=== PATIENT | female | born 1985 | race Caucasian/White ===

== ENCOUNTER 2019-07-07 03:58 | Emergency (ER) | payer BC, MEDICAID ==
[2019-07-07] MEDS ORDERED: IBUPROFEN 600 MG TABLET PO ONE (08:37)
[2019-07-07 09:15] LABS: ABSOLUTE BASOPHILS # (AUTO) 0.1 10^3/uL (0.0-0.2); ABSOLUTE EOSINOPHILS # (AUTO) 0.5 10^3/uL (0.0-0.6); ABSOLUTE LYMPHOCYTES (AUTO) 2.1 10^3/uL (0.5-4.7); ABSOLUTE MONOCYTES (AUTO) 0.8 10^3/uL (0.1-1.4); ABSOLUTE NEUT (AUTO) 5.8 10^3/uL (1.7-8.2); BASOPHILS % (AUTO) 1.2 % (0-2); EOSINOPHILS % (AUTO) 5.5 % (0-6); HEMATOCRIT 39.5 % (36.0-47.0); HEMOGLOBIN 13.1 g/dL (12.0-15.5); LYMPHOCYTES % (AUTO) 22.6 % (13-45); MEAN CORPUSCULAR HEMOGLOBIN 27.8 pg (27.0-33.4); MEAN CORPUSCULAR HGB CONC 33.2 g/dL (32.0-36.0); MEAN CORPUSCULAR VOLUME 84 fl (80-97); PLATELET COUNT 321 10^3/uL (150-450); RED BLOOD COUNT 4.73 10^6/uL (3.72-5.28); RED CELL DISTRIBUTION WIDTH 15.9 % (11.5-14.0); SEGMENTED NEUTROPHILS % (AUTO) 61.7 % (42-78); TOTAL CELLS COUNTED % (AUTO) 100 %; WHITE BLOOD COUNT 9.3 10^3/uL (4.0-10.5)
[2019-07-07 09:36] LABS: ALBUMIN 4.2 g/dL (3.5-5.0); ALKALINE PHOSPHATASE 62 U/L (38-126); ANION GAP 10 (5-19); ASPARTATE AMINO TRANSFERASE 33 U/L (14-36); BILIRUBIN,DIRECT 0.1 mg/dL (0.0-0.4); BILIRUBIN,TOTAL 0.5 mg/dL (0.2-1.3); BLOOD UREA NITROGEN 14 mg/dL (7-20); CALCIUM 9.5 mg/dL (8.4-10.2); CARBON DIOXIDE 29 mmol/L (22-30); CHLORIDE 102 mmol/L (98-107); GLUCOSE 104 mg/dL (75-110); POTASSIUM 4.1 mmol/L (3.6-5.0)
--- NOTE | 2019-07-07 10:01 | ER Document Report ---
ED General - General Chief Complaint: Swelling of Lower Extremity Stated Complaint: SWOLLEN FEET AND LEGS Time Seen by Provider: 07/07/19 08:07 Primary Care Provider: MOJGAN BELTRAN MD [Primary Care Provider] - Follow up as needed TRAVEL OUTSIDE OF THE [place] IN LAST 30 DAYS: No - HPI Notes: 33-year-old female to the emergency department with complaints of bilateral lower leg swelling for over a week. She states that her feet are the most swollen and they hurt. 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 She denies any chest pain, shortness of breath, recent immobilization, recent surgery, oral contraceptive use, recent long distance travel, history of DVT, or family history of coagulopathies. Patient denies any falls or blunt trauma to the legs. She denies any fevers, chills. She has not tried anything for her legs. She also admits that she wears flip-flops when she is working. - Related Data Allergies/Adverse Reactions: Penicillins Allergy (Severe, Verified 08/10/15 18:07) Hives Past Medical History - General Information source: Patient, Friend - Social History Smoking Status: Never Smoker Chew tobacco use (# tins/day): No Frequency of alcohol use: None Drug Abuse: None Family History: Reviewed & Not Pertinent Patient has suicidal ideation: No Patient has homicidal ideation: No Renal/ Medical History: Denies: Hx Peritoneal Dialysis - Immunizations Immunizations up to date: Yes Hx Diphtheria, Pertussis, Tetanus Vaccination: Yes Review of Systems - Review of Systems Constitutional: denies: Chills, Diaphoresis, Fever EENT: No symptoms reported Cardiovascular: See HPI, Edema. denies: Chest pain, Palpitations, Dyspnea, Syncope, Dizziness, Lightheaded Respiratory: denies: Cough, Short of breath Genitourinary: No symptoms reported Musculoskeletal: See HPI, Leg swelling, Ankle swelling Skin: No symptoms reported Hematologic/Lymphatic: No symptoms reported Neurological/Psychological: No symptoms reported -: Yes All other systems reviewed and negative Physical Exam - Vital signs Vitals: Temp Pulse Resp BP Pulse Ox 97.7 F 94 22 H 127/106 H 98 07/07/19 03:59 07/07/19 03:59 07/07/19 03:59 07/07/19 03:59 07/07/19 03:59 Interpretation: Normal - General General appearance: Appears well, Alert In distress: None Notes: Upon initial interview patient is sleeping quietly. She is easily awakened with light touch and voice. - HEENT Head: Normocephalic, Atraumatic Eyes: Normal Pupils: PERRL - Respiratory Respiratory status: No respiratory distress Chest status: Nontender Breath sounds: Normal Chest palpation: Normal - Cardiovascular Rhythm: Regular Heart sounds: Normal auscultation Murmur: No - Abdominal Inspection: Obese Distension: No distension Bowel sounds: Normal Tenderness: Nontender Organomegaly: No organomegaly - Back Back: Normal, Nontender - Extremities General lower extremity: Edema - See skin, Normal color, Normal ROM, Normal strength, Normal temperature. No: Eileen's sign - Neurological Neuro grossly intact: Yes Cognition: Normal Orientation: AAOx4 Lenox Coma Scale Eye Opening: Spontaneous Lenox Coma Scale Verbal: Oriented Len[place] Coma Scale Motor: Obeys Commands Karsten Coma Scale Total: 15 Speech: Normal Cranial nerves: No: Facial palsy, Forehead sparing, Gaze palsy Cerebellar coordination: Normal Motor strength normal: LUE, RUE, LLE, RLE Sensory: Normal - Psychological Associated symptoms: Normal affect, Normal mood - Skin Skin Temperature: Warm Skin Moisture: Dry Skin Color: Normal Skin Turgor: Edematous - Bilateral 2+ pitting edema to the dorsum of the feet. Mild edema to the lower legs with no pitting edema. Bilateral DP pulses intact. Skin is not erythematous or weeping. There is no evidence of superimposed infection. Course - Re-evaluation Re-evalutation: 07/07/19 09:59 Impression: Bilateral feet edema and pain likely dependent in nature. Lab work is reassuring. She has no chest pain or shortness of breath. She has a low Wells risk score for DVT. 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 We will have her follow-up with primary care clinic this Monday. She agrees with the plan. Patient also had friend at bedside which she allowed me to give this information to as well and friend also agrees with the plan. - Vital Signs Vital signs: Temp Pulse Resp BP Pulse Ox 97.7 F 94 22 H 127/106 H 98 07/07/19 03:59 07/07/19 03:59 07/07/19 03:59 07/07/19 03:59 07/07/19 03:59 - Laboratory Result Diagrams: 07/07/19 09:04 07/07/19 09:04 Laboratory results interpreted by me: 07/07/19 09:04 RDW 15.9 H Discharge - Discharge Clinical Impression: Bilateral swelling of feet, Leg swelling Condition: Stable Disposition: HOME, SELF-CARE Instructions: Dependent Edema ([facility]), [facility] Additional Instructions: Take medicine as prescribed. Use compression hose without fail. Wear supportive shoes while at work. Elevate your legs and perform ankle pumps daily. Follow-up with primary care clinic without fail. Return if any worsening pain, leg redness, hot skin to the legs, weeping of the legs, fevers, chest pain, shortness of breath. Prescriptions: Hydrochlorothiazide 12.5 mg PO DAILY #7 tablet Compress.stocking,Knee,Reg,Lrg [Truform Compression Stocking] 1 each MC DAILY #1 each Forms: Return to Work Referrals: [facility] [Provider Group] - Follow up in 3-5 days
[2019-07-07 10:22] VITALS: BP 118/79
== END 2019-07-07 10:25 | disposition home or self-care (01) ==
LOC: ER 03:58
DX: R22.43 Localized swelling, mass and lump, lower limb, bilateral (principal); E66.9 Obesity, unspecified; Z88.0 Allergy status to penicillin
CPT/HCPCS: 99283; 36415; 83735; 85025; 80053; J3490